=== PATIENT | female | born 1960 | race Caucasian/White ===

== ENCOUNTER → 2019-11-12 08:42 | Outpatient (CLI) | payer OTHER, SELFPAY ==
[2019-11-12 09:18] LABS: Add Manual Diff / Slide Review NO; Basophils Absolute Auto 0 /uL (0-100); Basophils Percent Auto 0.7 % (0-2); Eosinophils Absolute Auto 400 /uL (0-450); Eosinophils Percent Auto 6.7 % (2-4); Hemoglobin 13.9 g/dL (12.0-16.0); Lymphocytes Absolute Auto 1400 /uL (1100-4500); Lymphocytes Percent Auto 21.5 % (25-40); Mean Corpuscular HGB Conc 33.9 % (30-36); Mean Corpuscular Hemoglobin 32.3 PG (26-34); Mean Corpuscular Volume 95.5 fL (80-100); Monocytes Absolute Auto 300 /uL (0-900); Monocytes Percent Auto 5.1 % (3-14); Neutrophils Absolute Auto 4300 /uL (1500-7000); Platelet Count 244 X10^3/uL (150-400); Red Blood Cell Count 4.29 X10^6/uL (4.0-5.2); White Blood Cell Count 6.6 X10^3/uL (4.5-11.0)
[2019-11-12 09:37] LABS: Lithium 0.7 mmol/L (0.6-1.2)
[2019-11-12 09:48] LABS: Alanine Aminotransferase 39 IU/L (<35); Albumin Globulin Ratio 1.7 (1.0-2.8); Alkaline Phosphatase 73 U/L (38-126); Aspartate Aminotransferase 28 IU/L (14-36); BUN Creatinine Ratio 9.5 (6-22); Bilirubin Total 0.8 mg/dL (0.2-1.3); Blood Urea Nitrogen 9 mg/dL (7-17); Calcium 9.4 mg/dL (8.4-10.2); Carbon Dioxide 27 mmol/L (22-32); Chloride 107 mmol/L (98-107); Cholesterol 192 mg/dL (140-199); Estimated Glomerular Filt Rate > 60.0 mL/min (>60); Globulin 2.4 g/dL (1.7-4.1); Glucose 113 mg/dL (70-100); HDL Cholesterol 54 mg/dL (40-60); HEMOLYSIS < 15 (0-50); LDL Cholesterol Calculated 104 mg/dL (<100); Potassium 4.3 mmol/L (3.4-5.1); Sodium 139 mmol/L (137-145); Total Protein 6.4 g/dL (6.3-8.2); Triglycerides 170 mg/dL (35-150)
[2019-11-12 09:56] LABS: Free T4, Direct Thyroxine 1.11 ng/dL (0.78-2.19)
[2019-11-12 10:10] LABS: Thyroid Stimulating Hormone 1.34 uIU/mL (0.47-4.68)
[2019-11-14 14:37] LABS: Lamotrigine Lamictal 9.5 ug/mL (2.0-20.0)
== END ==
PROVIDERS: PCP Family Medicine; Referring Provider Psychiatry & Neurology Psychiatry; Visit Provider Psychiatry & Neurology Psychiatry
DX: F31.9 Bipolar disorder, unspecified (principal)
CPT/HCPCS: 36415; 80053; 80061; 80175; 80178; 84439; 84443; 85025

== ENCOUNTER 2019-11-20 21:19 | Emergency (ER) | payer OTHER, SELFPAY ==
--- NOTE | 2019-11-20 21:24 | ED.AMS ---
HPI - Altered Mental Status General Chief Complaint: Psychiatric Symptoms Stated Complaint: mental status changes Time Seen by Provider: 11/20/19 21:23 Source: patient and family Mode of arrival: Ambulatory Limitations: no limitations History of Present Illness HPI narrative: 59F non smoker with history of Bipolar presents with her and the chief complaint of escalating mental health problems over the past few weeks. She denies homicidal or suicidal ideation. She is able to care for herself. She is developing intense mood swings and increased episodes of anxiety and depression and it is getting worse. She and feel that this is tightly linked to a recent attempt at altering some of her medications by her psychiatrist. She has had her Citalopram gradually decreased. She denies fever or chills. She has had no chest pain, shortness of breath or cough. MD complaint: altered mental status Onset (ago): day(s) Timing confirmed by: spouse Severity: moderate Context: change in medication Related Data Home Medications Medication Instructions Recorded Confirmed Garlic (#GARLIC) 1 tab PO #0 01/08/11 10/30/19 levothyroxine 0.088 mg PO QAM #0 04/18/17 10/30/19 pantoprazole 40 mg PO BID #0 07/12/17 10/30/19 citalopram 40 mg tablet 40 mg PO DAILY 10/30/19 10/30/19 dicyclomine 10 mg capsule 10 mg PO BID PRN 10/30/19 10/30/19 lisinopril 10 mg tablet 10 mg PO DAILY 10/30/19 10/30/19 Previous Rx's Medication Instructions Recorded citalopram 10 mg tablet 10 mg PO DAILY #7 tab 10/30/19 clonazepam 1 mg tablet 1 mg PO BID PRN #60 tab 10/30/19 lamotrigine 100 mg tablet 200 mg PO BID #60 tab 10/30/19 lithium carbonate 300 mg capsule See Rx Instructions .ROUTE 10/30/19 .COMPLEX #90 cap quetiapine 100 mg tablet 100 mg PO BEDTIME #30 tab 10/30/19 quetiapine 25 mg tablet 25 mg PO DAILY PRN #30 tab 10/30/19 Allergies Allergy/AdvReac Type Severity Reaction Status Date / Time raspberry Allergy Severe Severe Verified 10/30/19 13:14 reaction rash that required prednisone treatment potato Allergy Mild GI Upset Verified 10/30/19 13:16 grass hay Allergy Mild rash Uncoded 10/30/19 13:16 cristine Allergy Mild tingling Uncoded 10/30/19 13:16 lips pineapple Allergy Mild tingling Uncoded 10/30/19 13:16 Review of Systems Constitutional Constitutional: Denies chills, Denies fatigue, Denies fever(s), Denies frequent falls, Denies lethargy and Denies weakness Eyes Eyes: Denies change in vision, Denies eye discharge, Denies irritation and Denies loss of vision ENT Ears, Nose, Mouth, and Throat: Denies change in voice, Denies dizziness, Denies neck pain, Denies sore throat and Denies throat swelling Cardiovascular Cardiovascular: Denies chest pain, Denies irregular heart rhythm, Denies lightheadedness, Denies palpitations, Denies dyspnea, Denies dyspnea on exertion and Denies orthopnea Respiratory Respiratory: Denies cough, Denies dyspnea, Denies dyspnea on exertion and Denies wheezing Gastrointestinal Gastrointestinal: Denies abdominal pain, Denies change in bowel habits, Denies diarrhea, Denies nausea and Denies vomiting Musculoskeletal Musculoskeletal: Denies neck pain and Denies numbness Integumentary/Breasts Skin/Breast: Denies pruritus, Denies erythema, Denies rash and Denies wounds Neurologic Neurologic: Reports behavioral changes, Denies confusion, Denies dizziness, Denies frequent falls, Denies loss of vision, Denies numbness and Denies weakness Psychiatric Psychiatric: Reports anxiety, Reports behavioral changes, Reports change in appetite, Denies confusion, Reports depression, Reports irritability, Reports mood swings, Denies homicidal ideation and Denies suicidal ideation Endocrine Endocrine: Denies fatigue, Denies flushing and Denies palpitations Hematologic/Lymphatic Hematologic/Lymphatic: Denies easy bruising Allergic/Immunologic Allergic/Immunologic: Denies urticaria, Denies throat swelling and Denies wheezing Patient History Surgical History Status post cholecystectomy Status post tonsillectomy and adenoidectomy Family History Grandmother Family history of breast cancer Mother Family history of ovarian cancer Social History Smoking Status: Never smoker Smoking Status: Never smoker alcohol intake frequency: 0-2 drinks per day Substance Use Type: does not use Exam Narrative Exam Narrative: GENERAL: [59] year old patient appears stated age. Well-nourished, well-developed patient, in moderate distress, tearful, pressured speech, anxious HEAD: Atraumatic. Normocephalic. EYES: Pupils equal round and reactive. Extraocular motions intact. No scleral icterus. No injection or drainage. ENT: Nose without bleeding, purulent drainage. Throat without erythema, tonsillar hypertrophy or exudate. Airway patent. NECK: Trachea midline. Non tender CARDIOVASCULAR: Regular rate and rhythm without murmurs, gallops, or rubs. RESPIRATORY: Clear to auscultation. Breath sounds equal bilaterally. No wheezes, rales, or rhonchi. GASTROINTESTINAL: Abdomen soft, non-tender, nondistended. EXTREMITIES: No edema or joint tenderness. BACK: Nontender without deformity or crepitance. No flank tenderness. NEURO: AOx3. SKIN: No rash or erythema of visible areas Initial Vital Signs Initial Vital Signs: Vital Signs Temperature 97.9 F 11/20/19 21:40 Pulse Rate 92 H 11/20/19 21:40 Respiratory Rate 19 11/20/19 21:40 Blood Pressure 157/76 H 11/20/19 21:40 Pulse Oximetry 97 11/20/19 21:40 Course Course Course Narrative: patient has no SI/HI but has had increasingly difficult time at home with recent medication changes. She has tried to work through this at home, but presents wishing to receive help. After discussion it seems that she may benefit from hospitalization to stabilize her meds. She is very much open to this concept and will stay overnight until LITHOGRAPH PRESS OPERATOR can see her in the morning. Orders Ordered: ED Orders 11/20/19 21:47 Urine Drug Screen, Rapid Stat 11/20/19 21:50 Acetaminophen Stat Complete Blood Count AUTO DIFF Stat Comprehensive Metabolic Panel Stat Ethanol (ETOH) Stat Lipase Stat [place] Stat Magnesium Stat Salicylate Stat Thyroid Stimulating Hormone Stat 11/20/19 22:40 Consult to LITHOGRAPH PRESS OPERATOR - Oil Burner Mechanic Stat Reevaluation(s) Reevaluation #1: Patient had been resting comfortably but now wishes to go home. She states that she has changed her mind and would prefer to see her psychiatrist at 10:30 a.m. rather than wait here. She understands that we have an LITHOGRAPH PRESS OPERATOR consult scheduled for her in the morning and that she has been medically cleared for evaluation and possible hospitalization for stabilization of her meds. She demonstrates capacity and good insight to make this decision. She is speaking clearly and ambulating with a steady gait. She continues to deny any suicidal or homicidal ideation. Vital Signs Vital signs: Vital Signs - 8 hr 11/21/19 00:53 Pulse Rate 88 Respiratory Rate 16 Blood Pressure 116/62 Pulse Oximetry 95 MDM - Altered Mental Status Lab Data Result diagrams: 11/20/19 21:50 11/20/19 21:50 Labs: Lab Results 11/20/19 11/20/19 11/20/19 Range/Units 21:47 21:50 21:50 WBC 6.8 (4.5-11.0) X10^3/uL RBC 4.53 (4.0-5.2) X10^6/uL Hgb 14.6 (12.0-16.0) g/dL Hct 43.3 (36-46) % MCV 95.7 (80-100) fL MCH 32.3 (26-34) PG MCHC 33.8 (30-36) % RDW 13.3 (11.6-14.8) % Plt Count 306 (150-400) X10^3/uL Neut % (Auto) 55.0 (50-75) % Lymph % (Auto) 30.2 (25-40) % Barnes % (Auto) 6.3 (3-14) % Eos % (Auto) 7.8 H (2-4) % Baso % (Auto) 0.7 (0-2) % Neut # (Auto) 3700 (7470-6238) /uL Lymph # (Auto) 2100 (0480-0803) /uL Barnes # (Auto) 400 (0-900) /uL Eos # (Auto) 500 H (0-450) /uL Baso # (Auto) 0 (0-100) /uL Sodium (137-145) mmol/L Potassium (3.4-5.1) mmol/L Chloride (98-107) mmol/L Carbon Dioxide (22-32) mmol/L BUN (7-17) mg/dL Creatinine (0.52-1.04) mg/dL Estimated GFR (>60) mL/min BUN/Creatinine Ratio (6-22) Glucose (70-100) mg/dL Calcium (8.4-10.2) mg/dL Magnesium (1.6-2.3) mg/dL Total Bilirubin (0.2-1.3) mg/dL AST (14-36) IU/L ALT (<35) IU/L Alkaline Phosphatase (38-126) U/L Total Protein (6.3-8.2) g/dL Albumin (3.5-5.0) g/dL Globulin (1.7-4.1) g/dL Albumin/Globulin Ratio (1.0-2.8) Lipase (23-300) U/L TSH (0.47-4.68) uIU/mL Salicylates 1.0 (<20) mg/dL U Opiates 300ng/mL cut Negative (Negative) Ur Oxycodone Screen Negative (Negative) Urine Methadone Screen Negative (Negative) Acetaminophen < 10 L (10-30) ug/mL Ur Barbiturates Screen Negative (Negative) U Tricyclic Antidepress Negative (Negative) Ur Phencyclidine Scrn Negative (Negative) Ur Amphetamines Screen Negative (Negative) U Methamphetamines Scrn Negative (Negative) Ur MDMA Scrn (Ecstasy) Negative (Negative) U Benzodiazepines Scrn Negative (Negative) [place] (0.6-1.2) mmol/L Urine Cocaine Screen Negative (Negative) U Marijuana (THC) Screen Negative (Negative) Ethyl Alcohol 169 H ( - 10) mg/dL 11/20/19 11/20/19 11/20/19 Range/Units 21:50 21:50 21:50 WBC (4.5-11.0) X10^3/uL RBC (4.0-5.2) X10^6/uL Hgb (12.0-16.0) g/dL Hct (36-46) % MCV (80-100) fL MCH (26-34) PG MCHC (30-36) % RDW (11.6-14.8) % Plt Count (150-400) X10^3/uL Neut % (Auto) (50-75) % Lymph % (Auto) (25-40) % Barnes % (Auto) (3-14) % Eos % (Auto) (2-4) % Baso % (Auto) (0-2) % Neut # (Auto) (6251-9642) /uL Lymph # (Auto) (2063-8229) /uL Barnes # (Auto) (0-900) /uL Eos # (Auto) (0-450) /uL Baso # (Auto) (0-100) /uL Sodium 143 (137-145) mmol/L Potassium 4.1 (3.4-5.1) mmol/L Chloride 107 (98-107) mmol/L Carbon Dioxide 23 (22-32) mmol/L BUN 14 (7-17) mg/dL Creatinine 0.96 (0.52-1.04) mg/dL Estimated GFR 59.9 L (>60) mL/min BUN/Creatinine Ratio 14.6 (6-22) Glucose 109 H (70-100) mg/dL Calcium 10.1 (8.4-10.2) mg/dL Magnesium 2.3 (1.6-2.3) mg/dL Total Bilirubin 0.6 (0.2-1.3) mg/dL AST 39 H (14-36) IU/L ALT 47 H (<35) IU/L Alkaline Phosphatase 78 (38-126) U/L Total Protein 7.8 (6.3-8.2) g/dL Albumin 4.7 (3.5-5.0) g/dL Globulin 3.1 (1.7-4.1) g/dL Albumin/Globulin Ratio 1.5 (1.0-2.8) Lipase 73 (23-300) U/L TSH 3.45 D (0.47-4.68) uIU/mL Salicylates (<20) mg/dL U Opiates 300ng/mL cut (Negative) Ur Oxycodone Screen (Negative) Urine Methadone Screen (Negative) Acetaminophen (10-30) ug/mL Ur Barbiturates Screen (Negative) U Tricyclic Antidepress (Negative) Ur Phencyclidine Scrn (Negative) Ur Amphetamines Screen (Negative) U Methamphetamines Scrn (Negative) Ur MDMA Scrn (Ecstasy) (Negative) U Benzodiazepines Scrn (Negative) [place] 0.8 (0.6-1.2) mmol/L Urine Cocaine Screen (Negative) U Marijuana (THC) Screen (Negative) Ethyl Alcohol ( - 10) mg/dL Urine Dip Bedside Urine Glucose Negative Bedside Urine Bilirubin - Negative Bedside Urine Ketone - Negative Urine Specific [place] 1.010 Bedside Urine Occult Blood - Negative Bedside Urine pH 7.0 Bedside Urine Protein - Negative Bedside Urine Urobilinogen - Negative Bedside Urine Nitrite - Negative Bedside Urine Leukocytes - Negative Esterase Discharge Plan Departure Patient Disposition: Home Clinical Impression: Acute anxiety Discharge Date/Time: 11/21/19 04:40 Prescriptions: No Action lisinopril 10 mg tablet 10 mg PO DAILY RF: 0 citalopram 40 mg tablet 40 mg PO DAILY RF: 0 dicyclomine 10 mg capsule 10 mg PO BID PRNRF: 0 quetiapine 25 mg tablet 25 mg PO DAILY PRN (Reason: agitation) Qty: 30 RF: 0 quetiapine [Seroquel] 100 mg tablet 100 mg PO BEDTIME Qty: 30 RF: 3 lithium carbonate 300 mg capsule See Rx Instructions .ROUTE .COMPLEX Qty: 90 RF: 3 lamotrigine [Lamictal] 100 mg tablet 200 mg PO BID Qty: 60 RF: 3 clonazepam 1 mg tablet 1 mg PO BID PRN (Reason: severe anxiety) Qty: 60 RF: 0 citalopram 10 mg tablet 10 mg PO DAILY Qty: 7 RF: 0 Garlic (#GARLIC) 1 tab PO Qty: 0 RF: 0 levothyroxine 88 MCG tablet 0.088 mg PO QAM Qty: 0 RF: 0 pantoprazole 40 MG tablet,delayed release (DR/EC) 40 mg PO BID Qty: 0 RF: 0 Referrals: Jacob Vogel [Primary Care Provider] -
[2019-11-20 21:40] VITALS: BP 157/76; PULSE 92; RESP 19; TEMP 36.6; O2SAT 97; BMI 48.7
[2019-11-20 22:00] LABS: UR Morphine/Opiate cutoff 300 Negative (Negative); Ur Creatinine Normal (Normal); Ur Specific Gravity Normal (Normal); Urine Amphetamines Negative (Negative); Urine Barbiturates Negative (Negative); Urine Benzodiazepines Negative (Negative); Urine Cocaine Negative (Negative); Urine MDMA Negative (Negative); Urine Methadone Negative (Negative); Urine Methamphetamines Negative (Negative); Urine Oxycodone Negative (Negative); Urine Phencyclidine Negative (Negative); Urine Tetrahydrocannabinol Negative (Negative); Urine Tricyclic Antidepressant Negative (Negative); Urine pH Normal (Normal)
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
[2019-11-20 22:14] LABS: Acetaminophen < 10 ug/mL (10-30); Add Manual Diff / Slide Review NO; Alanine Aminotransferase 47 IU/L (<35); Albumin 4.7 g/dL (3.5-5.0); Albumin Globulin Ratio 1.5 (1.0-2.8); Alkaline Phosphatase 78 U/L (38-126); Aspartate Aminotransferase 39 IU/L (14-36); BUN Creatinine Ratio 14.6 (6-22); Basophils Absolute Auto 0 /uL (0-100); Basophils Percent Auto 0.7 % (0-2); Bilirubin Total 0.6 mg/dL (0.2-1.3); Blood Urea Nitrogen 14 mg/dL (7-17); Calcium 10.1 mg/dL (8.4-10.2); Carbon Dioxide 23 mmol/L (22-32); Chloride 107 mmol/L (98-107); Eosinophils Absolute Auto 500 /uL (0-450); Eosinophils Percent Auto 7.8 % (2-4); Estimated Glomerular Filt Rate 59.9 mL/min (>60); Ethanol (ETOH) 169 mg/dL; Globulin 3.1 g/dL (1.7-4.1); Glucose 109 mg/dL (70-100); HEMOLYSIS 31 (0-50); Hematocrit 43.3 % (36-46); Hemoglobin 14.6 g/dL (12.0-16.0); Lipase 73 U/L (23-300); Lymphocytes Absolute Auto 2100 /uL (1100-4500); Lymphocytes Percent Auto 30.2 % (25-40); Magnesium 2.3 mg/dL (1.6-2.3); Mean Corpuscular HGB Conc 33.8 % (30-36); Mean Corpuscular Hemoglobin 32.3 PG (26-34); Mean Corpuscular Volume 95.7 fL (80-100); Monocytes Absolute Auto 400 /uL (0-900); Monocytes Percent Auto 6.3 % (3-14); Neutrophils Absolute Auto 3700 /uL (1500-7000); Platelet Count 306 X10^3/uL (150-400); Potassium 4.1 mmol/L (3.4-5.1); Red Blood Cell Count 4.53 X10^6/uL (4.0-5.2); Red Cell Distribution Width 13.3 % (11.6-14.8); Sodium 143 mmol/L (137-145); Total Protein 7.8 g/dL (6.3-8.2); White Blood Cell Count 6.8 X10^3/uL (4.5-11.0)
[2019-11-20 22:57] LABS: Thyroid Stimulating Hormone 3.45 uIU/mL (0.47-4.68)
[2019-11-20 23:37] LABS: Lithium 0.8 mmol/L (0.6-1.2)
[2019-11-21 00:53] VITALS: BP 116/62; PULSE 88; RESP 16; O2SAT 95
== END 2019-11-21 04:40 | disposition home or self-care (01) ==
PROVIDERS: Emergency Provider Emergency Medicine; PCP Family Medicine
DX: F41.9 Anxiety disorder, unspecified (principal); F31.9 Bipolar disorder, unspecified
CPT/HCPCS: 36415; 80053; 80178; 80305; 80320; 80329; 81003; 83690; 83735; 84443; 85025; 99284; G0480

== ENCOUNTER → 2020-07-15 12:17 | Outpatient (CLI) | payer OTHER, SELFPAY ==
[2020-07-15 13:14] LABS: Lithium 0.3 mmol/L (0.6-1.2)
[2020-07-15 13:39] LABS: Alanine Aminotransferase 28 IU/L (<35); Albumin 4.4 g/dL (3.5-5.0); Albumin Globulin Ratio 1.7 (1.0-2.8); Alkaline Phosphatase 73 U/L (38-126); Aspartate Aminotransferase 27 IU/L (14-36); BUN Creatinine Ratio 13.8 (6-22); Bilirubin Total 0.3 mg/dL (0.2-1.3); Blood Urea Nitrogen 13 mg/dL (7-17); Calcium 10.5 mg/dL (8.4-10.2); Carbon Dioxide 29 mmol/L (22-32); Chloride 103 mmol/L (98-107); Estimated Glomerular Filt Rate > 60.0 mL/min (>60); Globulin 2.6 g/dL (1.7-4.1); Glucose 104 mg/dL (70-100); HEMOLYSIS < 15 (0-50); Potassium 4.6 mmol/L (3.4-5.1); Sodium 139 mmol/L (137-145)
== END ==
PROVIDERS: PCP Family Medicine; Referring Provider Psychiatry & Neurology Psychiatry; Visit Provider Psychiatry & Neurology Psychiatry
DX: F31.9 Bipolar disorder, unspecified (principal)
CPT/HCPCS: 36415; 80053; 80178

== ENCOUNTER → 2020-10-08 13:02 | Outpatient (CLI) | payer OTHER, SELFPAY ==
[2020-10-08 14:30] LABS: Alanine Aminotransferase 24 IU/L (<35); Albumin 4.3 g/dL (3.5-5.0); Albumin Globulin Ratio 1.5 (1.0-2.8); Alkaline Phosphatase 72 U/L (38-126); Aspartate Aminotransferase 23 IU/L (14-36); BUN Creatinine Ratio 13.5 (6-22); Bilirubin Total 0.4 mg/dL (0.2-1.3); Blood Urea Nitrogen 12 mg/dL (7-17); Calcium 9.6 mg/dL (8.4-10.2); Carbon Dioxide 29 mmol/L (22-32); Chloride 108 mmol/L (98-107); Estimated Glomerular Filt Rate > 60.0 mL/min (>60); Globulin 2.8 g/dL (1.7-4.1); Glucose 106 mg/dL (70-100); HEMOLYSIS < 15 (0-50); Potassium 4.2 mmol/L (3.4-5.1); Sodium 141 mmol/L (137-145); Total Protein 7.1 g/dL (6.3-8.2)
[2020-10-08 15:49] LABS: Lithium 0.4 mmol/L (0.6-1.2)
== END ==
PROVIDERS: PCP Family Medicine; Referring Provider Psychiatry & Neurology Psychiatry; Visit Provider Psychiatry & Neurology Psychiatry
DX: F31.9 Bipolar disorder, unspecified (principal)
CPT/HCPCS: 36415; 80053; 80175; 80178

== ENCOUNTER → 2021-04-20 13:16 | Outpatient (CLI) | payer OTHER, SELFPAY ==
[2021-04-20 14:51] LABS: COVID19 -Nasal RAPID Negative (Negative)
== END ==
PROVIDERS: PCP Family Medicine; Referring Provider Nurse Practitioner Family; Visit Provider Nurse Practitioner Family
DX: Z20.822 Contact with and (suspected) exposure to COVID-19 (principal)
CPT/HCPCS: 87635

== ENCOUNTER → 2021-05-19 10:17 | Outpatient (CLI) | payer OTHER, SELFPAY ==
[2021-05-19 12:34] LABS: Lithium 0.5 mmol/L (0.6-1.2)
[2021-05-21 11:25] LABS: Lamotrigine Lamictal 6.8 ug/mL (2.0-20.0)
== END ==
PROVIDERS: PCP Family Medicine; Referring Provider Psychiatry & Neurology Psychiatry; Visit Provider Psychiatry & Neurology Psychiatry
DX: F31.9 Bipolar disorder, unspecified (principal)
CPT/HCPCS: 80175; 80178

== ENCOUNTER → 2021-09-24 12:38 | Outpatient (CLI) | payer OTHER, SELFPAY ==
--- NOTE | 2021-09-24 | DI.RAD.S_ITS ---
PROCEDURE: XR ABDOMEN MIN 2V INDICATIONS: Diarrhea, unspecified TECHNIQUE: 2 views of the abdomen were acquired. COMPARISON: None. FINDINGS: Surgical changes and devices: Clips in the right upper abdomen. Bowel: No pneumoperitoneum. The bowel gas pattern is normal. Soft tissues: No masses; visualized solid organ contours appear normal in size. No suspicious abdominal calcifications. Bones: No suspicious bony abnormalities. IMPRESSION: Normal bowel gas pattern. If clinical symptoms persist, CT is recommended. Dictated by: Reva Alejandre M.D. on 09/24/2021 at 17:24 Approved by: Reva Alejandre M.D. on 09/24/2021 at 17:54
== END ==
PROVIDERS: PCP Family Medicine; Referring Provider Internal Medicine Gastroenterology; Visit Provider Internal Medicine Gastroenterology
DX: R19.7 Diarrhea, unspecified (principal); R10.9 Unspecified abdominal pain
CPT/HCPCS: 74019

== ENCOUNTER → 2021-10-07 15:53 | Outpatient (CLI) | payer OTHER, SELFPAY ==
--- NOTE | 2021-10-07 | DI.US.S_ITS ---
PROCEDURE: US ABDOMEN COMPLETE INDICATIONS: ABDOMINAL PAIN/DIARRHEA TECHNIQUE: Real-time scanning was performed of the abdominal and retroperitoneal organs, with image documentation. COMPARISON: [facility], US, US RENAL COMPLETE, 07/22/2017, 17:19. FINDINGS: Liver: Echogenic. Length of 16.1 cm. Main portal vein flow is hepatopetal. Gallbladder: Resected. Biliary ducts: Intrahepatic bile ducts are non-dilated. Extrahepatic bile duct caliber measures 9 mm. Normal is 6-7 mm or less in diameter, or 10 mm or less post-cholecystectomy. Pancreas: Visualized portions of the pancreas are sonographically normal. Spleen: Spleen is normal in size and homogeneous in echotexture. Kidneys: Kidneys are normal in size and echotexture. Right kidney measures 12.7 cm long; left kidney measures 11.9 cm long. No hydronephrosis or nephrolithiasis. No solid masses. Small bilateral simple appearing cortical or renal sinus cysts, without suspicious features to necessitate imaging follow-up. Aorta: Visualized aorta is normal in caliber at less than 3 cm. Iliacs: Proximal common iliac arteries are normal in caliber at less than 2.5 cm. IVC: Intrahepatic inferior vena cava is patent. Miscellaneous: No free abdominal fluid. IMPRESSION: 1. The liver is echogenic, a nonspecific finding commonly seen in the setting of steatosis. 2. Prior cholecystectomy. Dictated by: Michael Lee M.D. on 10/08/2021 at 16:00 Approved by: Michael Lee M.D. on 10/08/2021 at 16:05
== END ==
PROVIDERS: PCP Family Medicine; Referring Provider Internal Medicine Gastroenterology; Visit Provider Internal Medicine Gastroenterology
DX: R10.9 Unspecified abdominal pain (principal); R19.7 Diarrhea, unspecified; Z90.49 Acquired absence of other specified parts of digestive tract
CPT/HCPCS: 76700

== ENCOUNTER → 2023-04-25 09:46 | Outpatient (CLI) | payer OTHER, SELFPAY ==
[2023-04-25 11:03] LABS: Alanine Aminotransferase 32 IU/L (<35); Albumin 3.9 g/dL (3.5-5.0); Albumin Globulin Ratio 1.6 (1.0-2.8); Alkaline Phosphatase 59 U/L (38-126); Aspartate Aminotransferase 28 IU/L (14-36); BUN Creatinine Ratio 23.6 (6-22); Bilirubin Total 0.6 mg/dL (0.2-1.3); Blood Urea Nitrogen 21 mg/dL (7-17); Calcium 9.8 mg/dL (8.4-10.2); Carbon Dioxide 27 mmol/L (22-32); Chloride 103 mmol/L (98-107); Estimated Glomerular Filt Rate > 60 mL/min (>60); Globulin 2.4 g/dL (1.7-4.1); Glucose 94 mg/dL (80-110); HEMOLYSIS < 15 (0-50); Potassium 4.4 mmol/L (3.4-5.1); Sodium 136 mmol/L (137-145); Total Protein 6.3 g/dL (6.3-8.2)
[2023-04-27 20:36] LABS: Lamotrigine Lamictal 6.7 ug/mL (2.0-20.0)
== END ==
LOC: LAB 09:47
PROVIDERS: PCP Family Medicine; Referring Provider Psychiatry & Neurology Psychiatry; Visit Provider Psychiatry & Neurology Psychiatry
DX: F31.9 Bipolar disorder, unspecified (principal); Z79.899 Other long term (current) drug therapy
CPT/HCPCS: 36415; 80053; 80175

== ENCOUNTER 2023-08-11 18:18 | Emergency (ER) | payer OTHER, SELFPAY ==
[2023-08-11 18:23] VITALS: BP 103/57; PULSE 71; RESP 15; TEMP 36.6; O2SAT 100; BMI 34.5
--- NOTE | 2023-08-11 19:50 | ED.DIZZY ---
HPI - Dizziness General Chief Complaint: Dizziness Stated Complaint: vertigo, nausea, vomiting Time Seen by Provider: 08/11/23 18:53 Source: patient Mode of arrival: Wheelchair History of Present Illness HPI Narrative: 62-year-old female with history of bipolar disorder, hypertension, history of gastric bypass presents for generalized weakness, flushing, nausea that occurred just prior to arrival. Patient was seen at [facility] on 08/09/23 for vertigo. Patient underwent blood work, CT imaging, MRI imaging of the brain that did not show any evidence of acute stroke. Patient was subsequently discharged home with clonazepam to take for vertigo. Patient states that today she had a very busy day including multiple follow up appointments in [place] and [place]. This afternoon she was getting a relaxation massage when all of a sudden she felt very hot all over and sweaty. She stated she did not feel right and told her has been to bring her to the emergency department. Patient states she has some vertigo but her primary concern is that she feels globally weak. Accu-Chek 66 in triage Related Data Home Medications Medication Instructions Recorded Confirmed Garlic (#GARLIC) 1 tab PO ##0 01/08/11 09/20/22 levothyroxine 88 mcg tablet 0.088 mg PO QAM ##0 04/18/17 09/20/22 pantoprazole 40 mg tablet,delayed 40 mg PO BID ##0 07/12/17 09/20/22 release dicyclomine 10 mg capsule 10 mg PO BID PRN 10/30/19 09/20/22 Bacillus coagulans-inulin 1 cap PO 12/31/19 09/20/22 billion cell-250 mg capsule (Probiotic with Prebiotic) Previous Rx's Medication Instructions Recorded silver sulfadiazine 1 % topical 1 applic topical BID #85 grams 03/31/22 cream (Silvadene) lamotrigine 100 mg tablet 100 mg PO BID #180 tabs 03/07/23 clonazepam 1 mg tablet 1 mg PO BID PRN severe anxiety #60 07/11/23 tabs quetiapine 50 mg tablet See Rx Instructions PO BEDTIME 08/03/23 #360 tabs citalopram 20 mg tablet 20 mg PO DAILY #90 tabs 08/11/23 Allergies Allergy/AdvReac Type Severity Reaction Status Date / Time tomato Allergy Mild lips Verified 08/11/23 18:23 burning tayberry Allergy Intermediate hives, Uncoded 09/20/22 12:44 swelling/tingling of lips grass hay Allergy Mild rash Uncoded 09/20/22 12:44 pineapple Allergy Mild tingling Uncoded 09/20/22 12:44 Review of Systems Review of Systems Narrative: See HPI Patient History Surgical History Status post tonsillectomy and adenoidectomy Status post cholecystectomy Family History Grandmother Family history of breast cancer Mother Family history of ovarian cancer Social History Smoking Status: Former smoker Smoking Status: Former smoker alcohol intake frequency: holidays/special occasions only Substance Use Type: does not use Exam Initial Vital Signs Initial Vital Signs: Vital Signs Temperature 97.8 F 08/11/23 18:23 Pulse Rate 71 08/11/23 18:23 Respiratory Rate 15 08/11/23 18:23 Blood Pressure 103/57 L 08/11/23 18:23 Pulse Oximetry 100 08/11/23 18:23 Oxygen Delivery Method Room Air 08/11/23 18:23 Const: Awake, alert, no acute distress, nontoxic appearing Cardiac: regular rate, regular rhythm RESP: unlabored, clear bilaterally, no wheezing Skin: Warm, Dry, intact, no rashes Neuro: AO x3, CN II-XII grossly intact, moves all extremities Course Orders Ordered: ED Orders 08/11/23 19:00 CBC Auto Diff [Complete Blood Count AUTO DIFF] Stat CMP [Comprehensive Metabolic Panel] Stat 08/11/23 20:46 UA Complete [Urinalysis and Microscopic] Stat Urine Culture Stat Discontinued Medications Sodium Chloride (Normal Saline 0.9%) 1,000 mls @ 1,000 mls/hr IV BOLUS ONE Stop: 08/11/23 20:48 Last Infusion: 08/11/23 21:32 Dose: Infused Documented By: Admin: 08/11/23 20:51 Dose: 1,000 mls/hr Documented By: KD Vital Signs Vital signs: Vital Signs - 8 hr 08/11/23 21:37 Pulse Rate 65 Respiratory Rate 18 Blood Pressure 120/73 Pulse Oximetry 95 Oxygen Delivery Method Room Air MDM - Dizziness Lab Data 08/11/23 19:00 08/11/23 19:00 Labs: Lab Results 08/11/23 08/11/23 Range/Units 19:00 20:46 WBC 5.1 (4.5-11.0) X10^3/uL RBC 4.32 (4.0-5.2) X10^6/uL Hgb 13.3 (12.0-16.0) g/dL Hct 40.0 (36-46) % MCV 92.6 (80-100) fL MCH 30.9 (26-34) PG MCHC 33.4 (30-36) % RDW 13.4 (11.6-14.8) % Plt Count 222 (150-400) X10^3/uL Neut % (Auto) 45.9 L (50-75) % Lymph % (Auto) 33.1 (25-40) % [place] % (Auto) 9.1 (3-14) % Eos % (Auto) 11.1 H (2-4) % Baso % (Auto) 0.8 (0-2) % Neut # (Auto) 2400 (5540-4627) /uL Lymph # (Auto) 1700 (3604-5319) /uL [place] # (Auto) 500 (0-900) /uL Eos # (Auto) 600 H (0-450) /uL Baso # (Auto) 0 (0-100) /uL Sodium 137 (137-145) mmol/L Potassium 3.5 (3.4-5.1) mmol/L Chloride 103 (98-107) mmol/L Carbon Dioxide 29 (22-32) mmol/L BUN 28 H (7-17) mg/dL Creatinine 0.66 (0.52-1.04) mg/dL Estimated GFR > 60 (>60) mL/min BUN/Creatinine Ratio 42.4 H (6-22) Glucose 67 L (80-110) mg/dL Calcium 9.0 (8.4-10.2) mg/dL Total Bilirubin 0.6 (0.2-1.3) mg/dL AST 28 (14-36) IU/L ALT 22 (<35) IU/L Alkaline Phosphatase 80 (38-126) U/L Total Protein 6.7 (6.3-8.2) g/dL Albumin 4.1 (3.5-5.0) g/dL Globulin 2.6 (1.7-4.1) g/dL Albumin/Globulin Ratio 1.6 (1.0-2.8) Urine Color Yellow Urine Appearance Clear Urine pH 6.0 (4.5-8.0) Ur Specific [place] <=1.005 (1.000-1.035) Urine Protein Negative (Negative) Urine Glucose (UA) Negative (Negative) g/dL Urine Ketones Negative (NEGATIVE) Urine Occult Blood Negative (Negative) Urine Nitrate Negative (Negative) Urine Bilirubin Negative (NEGATIVE) Urine Urobilinogen 0.2 (0.2) E.U./dL Ur Leukocyte Esterase Trace H (NEGATIVE) Urine RBC None seen (0-5/HPF) Urine WBC 0-1/hpf (0-5/HPF) Ur Squamous Epith Cells 1-5 /hpf (0-5/HPF) Urine Bacteria Occasional (0-1) (None) Ur Culture Indicated? Specimen cultured Vol Urine Centrifuged 10ml (spun) Point of Care Testing Glucose POC 66 Urine Dip Bedside Urine Glucose Negative Bedside Urine Bilirubin - Negative Bedside Urine Ketone - Negative Urine Specific [place] 1.01 Bedside Urine Occult Blood - Negative Bedside Urine pH 6 Bedside Urine Protein - Negative Bedside Urine Urobilinogen - Negative Bedside Urine Nitrite - Negative Bedside Urine Leukocytes - Negative Esterase MDM Narrative Medical decision making narrative: Generalized weakness after a long day of multiple appointments and recent ER visit. Records reviewed from [facility] show patient underwent extensive battery of tests including MRI brain and thyroid stimulating hormone, which did not show any evidence of stroke or other acute abnormalities. Patient feels globally weak, no focal deficits, NIH 0. Accu-Chek 66 in triage. Patient states this is low for her, but also states that she does not regularly check her blood sugars and does not have a history of diabetes. She was given p.o. snacks in the emergency department per her request. Laboratory work is reviewed, unremarkable, unchanged from [facility] visit. Patient received IV fluids, ate several snacks and reported feeling improved. Patient and family informed of lab findings and I reviewed [facility] records with them which were reassuring. Patient states that she has scheduled follow up with her primary care physician and will return for any new or worsening concerns. Discharge Plan Departure Patient Disposition: Home Clinical Impression: Generalized weakness Instructions: DI for Dizziness-Nonvertigo Activity Restrictions/Additional Instructions: Continue home medications as prescribed. Follow up with the primary care physician. Prescriptions: No Action silver sulfadiazine [Silvadene] 1 % cream 1 applic topical BID Qty: 85 0RF Rx Instructions: apply a 1.5 mm thickness TID for 7 days dicyclomine 10 mg capsule 10 mg PO BID PRN Probiotic with Prebiotic 1 billion-250 cell-mg capsule PO Garlic (#GARLIC) 1 tab PO Qty: 0 levothyroxine 88 MCG tablet 0.088 mg PO QAM Qty: 0 pantoprazole 40 MG tablet,delayed release (DR/EC) 40 mg PO BID Qty: 0 lamotrigine 100 mg tablet 100 mg PO BID Qty: 180 1RF clonazepam 1 mg tablet 1 mg PO BID PRN (Reason: severe anxiety) Qty: 60 0RF quetiapine 50 mg tablet See Rx Instructions PO BEDTIME Qty: 360 1RF Rx Instructions: Take 50 mg (1 tab) PO TID, and take 150 mg (3 Tabs) PO bedtime; citalopram 20 mg tablet 20 mg PO DAILY Qty: 90 1RF Referrals: Lindsay Biggs DO [Primary Care Provider] - Stand Alone Forms: Patient Portal/API
[2023-08-11 20:00] LABS: Add Manual Diff / Slide Review NO; Basophils Absolute Auto 0 /uL (0-100); Basophils Percent Auto 0.8 % (0-2); Eosinophils Absolute Auto 600 /uL (0-450); Eosinophils Percent Auto 11.1 % (2-4); Hemoglobin 13.3 g/dL (12.0-16.0); Lymphocytes Absolute Auto 1700 /uL (1100-4500); Lymphocytes Percent Auto 33.1 % (25-40); Mean Corpuscular HGB Conc 33.4 % (30-36); Mean Corpuscular Hemoglobin 30.9 PG (26-34); Mean Corpuscular Volume 92.6 fL (80-100); Monocytes Absolute Auto 500 /uL (0-900); Monocytes Percent Auto 9.1 % (3-14); Neutrophils Absolute Auto 2400 /uL (1500-7000); Neutrophils Percent Auto 45.9 % (50-75); Platelet Count 222 X10^3/uL (150-400); Red Blood Cell Count 4.32 X10^6/uL (4.0-5.2); Red Cell Distribution Width 13.4 % (11.6-14.8); White Blood Cell Count 5.1 X10^3/uL (4.5-11.0)
[2023-08-11 20:10] LABS: Alanine Aminotransferase 22 IU/L (<35); Albumin 4.1 g/dL (3.5-5.0); Albumin Globulin Ratio 1.6 (1.0-2.8); Alkaline Phosphatase 80 U/L (38-126); Aspartate Aminotransferase 28 IU/L (14-36); BUN Creatinine Ratio 42.4 (6-22); Bilirubin Total 0.6 mg/dL (0.2-1.3); Blood Urea Nitrogen 28 mg/dL (7-17); Carbon Dioxide 29 mmol/L (22-32); Chloride 103 mmol/L (98-107); Estimated Glomerular Filt Rate > 60 mL/min (>60); Globulin 2.6 g/dL (1.7-4.1); Glucose 67 mg/dL (80-110); HEMOLYSIS < 15 (0-50); Potassium 3.5 mmol/L (3.4-5.1); Sodium 137 mmol/L (137-145); Total Protein 6.7 g/dL (6.3-8.2)
[2023-08-11] MEDS: SODIUM CHLORIDE 0.9% 1,000 ML 1000 ML IV (20:51)
[2023-08-11 21:18] LABS: Appearance Urine UA CLEAR; Bilirubin Urine UA NEGATIVE (NEGATIVE); Color Urine UA YELLOW; Glucose Urine UA NEGATIVE (Negative); Ketones Urine UA NEGATIVE (NEGATIVE); Leukocyte Esterase Urine UA TRACE (NEGATIVE); Nitrite Urine UA NEGATIVE (Negative); Occult Blood Urine UA NEGATIVE (Negative); Protein Urine UA NEGATIVE (Negative); Specific Gravity Urine UA <=1.005 (1.000-1.035); Urobilinogen Urine UA 0.2 E.U./dL (0.2)
[2023-08-11 21:25] LABS: Bacteria Urine Occasional (0-1); Culture Indicated Urine Specimen Cultured; RBC Urine None Seen (0-5/HPF); Squamous Epithelial Cell Urine 1-5 /HPF (0-5/HPF); Urine Volume 10mL (spun); WBC Urine 0-1/HPF (0-5/HPF)
[2023-08-11 21:37] VITALS: BP 120/73; PULSE 65; RESP 18; O2SAT 95
== END 2023-08-11 21:47 | disposition home or self-care (01) ==
PROVIDERS: Emergency Provider Emergency Medicine; PCP Family Medicine
DX: R53.1 Weakness (principal)
CPT/HCPCS: 36415; 80053; 81001; 81003; 82962; 85025; 87086; 99283; 99284

== ENCOUNTER → 2024-07-31 09:50 | Outpatient (CLI) | payer OTHER, SELFPAY ==
[2024-07-31 10:44] LABS: Add Manual Diff / Slide Review NO; Basophils Absolute Auto 100 /uL (0-100); Eosinophils Absolute Auto 200 /uL (0-450); Eosinophils Percent Auto 5.2 % (2-4); Hematocrit 42.1 % (36-46); Hemoglobin 14.1 g/dL (12.0-16.0); Lymphocytes Absolute Auto 1100 /uL (1100-4500); Lymphocytes Percent Auto 31.4 % (25-40); Mean Corpuscular HGB Conc 33.4 % (30-36); Mean Corpuscular Hemoglobin 30.8 PG (26-34); Monocytes Absolute Auto 400 /uL (0-900); Monocytes Percent Auto 10.3 % (3-14); Neutrophils Absolute Auto 1800 /uL (1500-7000); Neutrophils Percent Auto 51.1 % (50-75); Platelet Count 231 X10^3/uL (150-400); Red Blood Cell Count 4.58 X10^6/uL (4.0-5.2); White Blood Cell Count 3.6 X10^3/uL (4.5-11.0)
[2024-07-31 11:14] LABS: Alanine Aminotransferase 130 IU/L (<35); Albumin 4.5 g/dL (3.5-5.0); Albumin Globulin Ratio 2.1 (1.0-2.8); Alkaline Phosphatase 72 U/L (38-126); Aspartate Aminotransferase 149 IU/L (14-36); Bilirubin Total 0.5 mg/dL (0.2-1.3); Blood Urea Nitrogen 26 mg/dL (7-17); Calcium 9.8 mg/dL (8.4-10.2); Carbon Dioxide 30 mmol/L (22-32); Chloride 103 mmol/L (98-107); Estimated Glomerular Filt Rate > 60 mL/min (>60); Globulin 2.1 g/dL (1.7-4.1); Glucose 93 mg/dL (70-99); HEMOLYSIS < 15 (0-50); Potassium 4.7 mmol/L (3.4-5.1); Sodium 139 mmol/L (137-145); Total Protein 6.6 g/dL (6.3-8.2)
[2024-07-31 11:44] LABS: TSH w/ Reflex to FT4 1.25 uIU/mL (0.47-4.68)
[2024-08-02 09:40] LABS: Lamotrigine Lamictal 8.8 ug/mL (2.0-20.0)
== END ==
PROVIDERS: PCP Family Medicine; Referring Provider Psychiatry & Neurology Psychiatry; Visit Provider Psychiatry & Neurology Psychiatry
DX: F31.9 Bipolar disorder, unspecified (principal); Z79.899 Other long term (current) drug therapy
CPT/HCPCS: 80053; 80175; 84443; 85025